=== PATIENT | female | born 1985 | race Caucasian/White ===

== ENCOUNTER 2017-01-28 21:49 | Emergency (ER) | payer OTHER ==
[~2017-01-28] VITALS: Ht 157.5 cm; Wt 66.0 kg
[~2017-01-28 21:49] MED LIST: CIPR500T4 PO; DIPH1TAB25 PO; HYDR-3498 PO; IBUP-1542 PO; OMEP20CA16 PO; ONDA4TAB14 PO; ONDA4TAB35 PO; PREN1TAB49; RANI150T9 PO
[2017-01-28 21:53] VITALS: Ht 157.5 cm; Wt 66.0 kg
[2017-01-28] MEDS ORDERED: DEXAMETHASONE 10 MG/ML 1 ML INJ IM ONE (23:00)
[2017-01-28] MEDS ORDERED: DIPHENHYDRAMINE 50 MG INJ IM ONE (23:00)
--- NOTE | 2017-01-28 23:15 | ERD ---
ER Documentation Chief Complaint Date/Time DATE: 01/28/17 TIME: 23:14 Chief Complaint GEN. BODY RASH. UNKNOWN ALLERGY TO WHAT DENIES SOB HPI This is a very pleasant 31-year-old female comes with generalized body rash for the past 2 days. She has an unknown allergy. She says she has had this once before. Patient went a rash to trunk abdomen chest, breasts lower extremities and upper extremities. ROS All systems reviewed and are negative except as per history of present illness. Medications Home Meds Active Scripts Omeprazole* (Omeprazole*) 20 Mg Capsule.dr, 20 MG PO DAILY, #10 Prov:SIMON ZAMBRANO MD 08/25/16 Ibuprofen* (Motrin*) 600 Mg Tab, 600 MG PO Q6H Y for PAIN AND OR ELEVATED TEMP, #20 TAB Prov:SIMON ZAMBRANO MD 08/25/16 Ondansetron (Ondansetron Odt) 4 Mg Tab.rapdis, 4 MG PO Q6H Y for NAUSEA AND/OR VOMITING, #10 TAB Prov:SIMON ZAMBRANO MD 08/25/16 Ciprofloxacin Hcl* (Ciprofloxacin Hcl*) 500 Mg Tablet, 500 MG PO BID for 5 Days , TAB Prov:ANTHONY ERAZOSTDEBORAHS Agustin DO 12/25/15 Diphenoxylate Hcl-Atropine* (Lomotil*) 1 Tab Tab, 1 TAB PO QID Y for DIARRHEA, # 10 TAB Prov:ANTHONY ERAZOSTDEBORAHS AAsia DO 12/25/15 Ranitidine Hcl* (Zantac*) 150 Mg Tablet, 150 MG PO BID Y for EPIGASTRIC PAIN, # 30 TAB Prov:GENO ERAZO DO 12/25/15 Hydrocodone Bit-Acetaminophen* ([place]*) 5-325 Mg Tab, 1 TAB PO Q6 Y for PAIN, # 7 TAB Prov:SAMMIE ERAZOS Agustin DO 12/25/15 Ondansetron Hcl* (Zofran* ODT) 4 mg -ODT Tab.disper, 4 MG PO Q6 Y for NAUSEA AND /OR VOMITING, #10 TAB Prov:ANTHONY ERAZOSTDEBORAHS AAsia DO 12/25/15 Reported Medications Vits W-Ca,Fe,Fa(<1MG) () 1 Tab Tablet 10/18/10 Allergies Allergies: Coded Allergies: No Known Drug Allergy (Verified Allergy, Unknown, 01/28/17) PMhx/Soc History of Surgery: Yes (, gall bladder removed) Anesthesia Reaction: No Hx Neurological Disorder: No Hx Respiratory Disorders: No Hx Cardiac Disorders: No Hx Psychiatric Problems: No Hx Miscellaneous Medical Probl: Yes (allergic rashes) Hx Alcohol Use: Yes (occasional) Hx Substance Use: No Hx Tobacco Use: No Smoking Status: Never smoker Physical Exam Vitals Vital Signs Date Time Temp Pulse Resp B/P Pulse Ox O2 Delivery O2 Flow Rate FiO2 01/28/17 21:53 97.0 77 20 136/79 99 Physical Exam Const: [] Head: Atraumatic Eyes: Normal Conjunctiva ENT: Normal External Ears, Nose and Mouth. Neck: Full range of motion..~ No meningismus. Resp: Clear to auscultation bilaterally Cardio: Regular rate and rhythm, no murmurs Abd: Soft, non tender, non distended. Normal bowel sounds Skin: Maculopapular rash involving trunk upper and lower extremities. Now weeping nonblanching non-crusted Back: No midline or flank tenderness Ext: No cyanosis, or edema Neur: Awake and alert Psych: Normal Mood and Affect Results 24 hrs Current Medications Medications (Trade) Dose Ordered Sig/Gunner Route PRN Reason Start Time Stop Time Status Last Admin Dose Admin Diphenhydramine HCl (Benadryl) 50 mg ONCE ONCE IM 01/28/17 23:00 01/28/17 23:01 DC Dexamethasone (Decadron) 10 mg ONCE ONCE IM 01/28/17 23:00 01/28/17 23:01 DC 01/28/17 23:13 Procedures/MDM Patient's dermatologic symptoms have stabilized while they have been evaluated in the department and are appropriate for outpatient work up. No evidence of Lanre Hong's syndrome, Kawasaki's, or sepsis. Departure Diagnosis: Primary Impression: Rash Condition: Stable BONNIE RODRIGUEZ January 28, 2017 23:15
[2017-01-28] MEDS ORDERED: PRED20TA PO (23:23)
[2017-01-28] MEDS ORDERED: HC1C30 TOP (23:23)
[2017-01-28] MEDS ORDERED: HYDR-842 PO (23:23)
== END 2017-01-28 23:51 | disposition home or self-care (01) ==
LOC: E/R 21:49
DX: R21 Rash and other nonspecific skin eruption (principal)
CPT/HCPCS: 96372; J1100; J1200; Z7502